=== PATIENT | female | born 1970 | race American Indian/Alaskan Native ===

== ENCOUNTER 2016-09-02 12:56 | Emergency (ER) | payer SELFPAY ==
[2016-09-02 17:45] VITALS: BP 130/80
--- NOTE | 2016-09-02 18:01 | Emergency Department Report ---
- General Chief Complaint: Upper Respiratory Infection Stated Complaint: HEADACHE/CHEST CONGESTION/COUGH Time Seen by Provider: 09/02/16 17:07 Source: patient Mode of arrival: Ambulatory Limitations: No Limitations - History of Present Illness Initial Comments: 46-year-old female past medical history smoker presents with complaint of one week of productive cough bodyaches. Denies any abdominal pain nausea or vomiting denies any chest pain no significant shortness of breath no palpitations. States cough is productive with yellowish greenish sputum. MD Complaint: cough Onset/Timin -: week(s) Severity: moderate Consistency: constant Improves With: OTC cold medicine Worsens With: nothing Associated Symptoms: cough - Related Data Previous Rx's Medication Instructions Recorded Last Taken Type ALBUTEROL Inhaler [ProAir HFA 2 puff IH QID PRN #1 inhalation 09/02/16 Unknown Rx Inhaler] Azithromycin [Zithromax Z-SABRINA] 250 mg PO QDAY #6 tablet 09/02/16 Unknown Rx Loratadine [Claritin] 10 mg PO DAILY #30 tablet 09/02/16 Unknown Rx Naproxen [Naprosyn TAB] 500 mg PO BID PRN #25 tablet 09/02/16 Unknown Rx Phenylephrine/Dm/Acetaminop/GG 10 ml PO Q6H PRN #1 liquid 09/02/16 Unknown Rx [Mucinex Linj-Ewl-Kjsvlobhup Lq] Allergies Allergy/AdvReac Type Severity Reaction Status Date / Time No Known Allergies Allergy Unverified 09/02/16 13:18 ED Review of Systems ROS: Stated complaint: HEADACHE/CHEST CONGESTION/COUGH Other details as noted in HPI ED Past Medical Hx - Past Medical History Previous Medical History?: No - Surgical History Additional Surgical History: LEFT FALLOPIAN TUBE REMOVED - Social History Smoking Status: Current Every Day Smoker Substance Use Type: None - Medications Home Medications: Home Medications Medication Instructions Recorded Confirmed Last Taken Type ALBUTEROL Inhaler [ProAir HFA 2 puff IH QID PRN #1 inhalation 09/02/16 Unknown Rx Inhaler] Azithromycin [Zithromax Z-SABRINA] 250 mg PO QDAY #6 tablet 09/02/16 Unknown Rx Loratadine [Claritin] 10 mg PO DAILY #30 tablet 09/02/16 Unknown Rx Naproxen [Naprosyn TAB] 500 mg PO BID PRN #25 tablet 09/02/16 Unknown Rx Phenylephrine/Dm/Acetaminop/GG 10 ml PO Q6H PRN #1 liquid 09/02/16 Unknown Rx [Mucinex Rpxf-Aej-Bdpatanjvo Lq] ED Physical Exam - General Limitations: No Limitations ED Course Vital Signs 09/02/16 09/02/16 13:15 17:43 Temperature 98.4 F 98.8 F Pulse Rate 97 H 91 H Respiratory 19 18 Rate Blood Pressure 132/76 Blood Pressure 130/80 [Left] O2 Sat by Pulse 99 99 Oximetry ED Medical Decision Making - Medical Decision Making A/P: Acute bronchitis 1-naproxen, Mucinex, Z-Sabrina, albuterol inhaler. Patient covered empirically because she is heavy smoker. 2-follow-up with primary medical doctor 3- 4- 5- Critical care attestation.: If time is entered above; I have spent that time in minutes in the direct care of this critically ill patient, excluding procedure time. ED Disposition Clinical Impression: Acute bronchitis Qualifiers: Bronchitis organism: unspecified organism Qualified Code(s): J20.9 - Acute bronchitis, unspecified Disposition: DISCHARGED TO HOME OR SELFCARE Is pt being admited?: No Does the pt Need Aspirin: No Condition: Stable Instructions: Acute Bronchitis (ED) Prescriptions: Loratadine [Claritin] 10 mg PO DAILY #30 tablet Phenylephrine/Dm/Acetaminop/GG [Mucinex Axyf-Iiv-Erumuqsvnu Lq] 10 ml PO Q6H PRN #1 liquid PRN Reason: Cough Naproxen [Naprosyn TAB] 500 mg PO BID PRN #25 tablet PRN Reason: Sore Throat ALBUTEROL Inhaler [ProAir HFA Inhaler] 2 puff IH QID PRN #1 inhalation PRN Reason: Shortness Of Breath Azithromycin [Zithromax Z-SABRINA] 250 mg PO QDAY #6 tablet Referrals: PRIMARY CARE, [Primary Care Provider] - 3-5 Days [facility] [Outside] - 3-5 Days Forms: Work/School Release Form(ED) Time of Disposition: 17:59
== END 2016-09-02 18:19 | disposition home or self-care (01) ==
LOC: ED 12:56
DX: J20.9 Acute bronchitis, unspecified (principal); M79.1 Myalgia; F17.200 Nicotine dependence, unspecified, uncomplicated
CPT/HCPCS: 99282